=== PATIENT | female | born 1965 | race Caucasian/White ===

== ENCOUNTER → 2021-04-01 07:04 | Outpatient (CLI) | payer BC, SELFPAY ==
[2021-04-01 14:03] LABS: Influenza A QL RT-PCR Negative (Negative); Influenza B QL RT-PCR Negative (Negative); SARS-CoV-2 RNA PCR Negative
== END ==
PROVIDERS: PCP Family Medicine; Visit Provider Physician Assistant
DX: R50.9 Fever, unspecified (principal); Z20.822 Contact with and (suspected) exposure to COVID-19
CPT/HCPCS: 87502; C9803; U0003; U0005

== ENCOUNTER 2021-07-14 01:05 | Day surgery (SDC) | payer BC, SELFPAY ==
[2021-07-01 13:17] VITALS: BMI 24.9
[2021-07-14 06:17] VITALS: BP 114/73; PULSE 90; RESP 18; TEMP 36.3; O2SAT 100; BMI 24.6
[2021-07-14] MEDS: LACTATED RINGERS 1,000 ML 150 ML IV CONT (06:41)
--- NOTE | 2021-07-14 07:23 | PM.HPGS ---
History of Present Illness History of Present Illness Consent: Risks, benefits, and alternatives have been discussed and questions answered. Patient agrees to proceed with procedure. Chief complaint: neoplasm screening Narrative: Mei Allen is a 56 year old female here for first screening colonoscopy Review of Systems Constitutional: Constitutional: Denies headache(s) and Denies weakness Eyes: Eyes: Denies blurry vision ENT: Reports Normal hearing present, Denies headache(s) and Denies neck pain Cardiovascular: Cardiovascular: Denies chest pain and Denies dyspnea Respiratory: Respiratory: Denies dyspnea Gastrointestinal: Gastrointestinal: Reports no additional gastrointestinal complaints Genitourinary: Genitourinary: Denies dysuria Musculoskeletal: Musculoskeletal: Denies neck pain Integumentary/Breasts: Skin/Breast: Denies dry skin Neurologic: Reports Normal hearing present, Denies headache(s) and Denies weakness Psychiatric: Psychiatric: Denies anxiety Endocrine: Endocrine: Denies change in body appearance Hematologic/Lymphatic: Hematologic/Lymphatic: Denies easy bleeding Allergic/Immunologic: Allergic/Immunologic: Denies urticaria PMFSH Past Medical History Medical History (Updated 05/17/21 @ 13:55 by Cathleen English MD) Burning tongue syndrome Chronic neck pain Factor V Leiden Thyroid nodule Surgical History Surgical History H/O wisdom tooth extraction Family History Family History Grandparent Family history of malignant neoplasm of breast Mother Afib Osteoarthritis DVT (deep venous thrombosis) Sibling Melanoma Father Dementia Black lung disease Osteoarthritis Heart disease CAD (coronary artery disease) Social History Social History Smoking status: Former smoker Tobacco type: cigarettes Second hand tobacco smoke exposure: No Smoking end date: 03/20/90 Alcohol intake: current Drinks per week: 6 Substance use: never Substance use type: does not use Living arrangements: with family Gender identity (if verbalized by the patient): Female Sexual Orientation (if Verbalized by the Patient): Straight or Heterosexual Spiritual care concerns: No Agree to blood products: Yes Meds Home Medications and Allergies Home Medications Medication Instructions Recorded Confirmed Type calcium carbonate 600 mg-vitamin 1 cap PO DAILY 04/08/21 07/14/21 History D3 12.5 mcg (500 unit) capsule abaloparatide 80 mcg SUBCUT DAILY 05/12/21 07/14/21 History alendronate 70 mg PO WEEKLY 07/01/21 07/14/21 History cholecalciferol (vitamin D3) 50 mcg PO DAILY 07/01/21 07/14/21 History [Vitamin D3] triamcinolone acetonide 1 applic TOPICAL DAILY 07/01/21 07/14/21 History Allergies Allergy/AdvReac Type Severity Reaction Status Date / Time No Known Allergies Allergy Verified 07/14/21 06:24 Vital Signs Vital Signs - 24 hr 07/14/21 06:17 Temperature 97.4 F L Pulse Rate 90 Respiratory Rate 18 Blood Pressure 114/73 Pulse Oximetry 100 Exam Const: General: comfortable and no acute distress HENMT: General nose exam: Normal nares present Eyes: General: appearance normal, both eyes and all related structures Neck: Neck: no JVD Resp: Auscultation: clear to auscultation bilaterally Cardio: Rate: regular rate Rhythm: regular rhythm GI: Inspection: non-distended GI Palp: Yes Soft to palpation Skin: General skin exam: normal color Neuro: General: gait normal Speech: normal speech Extrem: General: normal to inspection Psych: Mental Status: mental status grossly normal Assessment and Plan Assessment and plan (1) Colon cancer screening: Code(s): Z12.11 - Encounter for screening for malignant neoplasm of colon Status: Acute Assessment and Plan: co
--- NOTE | 2021-07-14 07:24 | P.PNAN_ITS ---
Anes - Initial Pre Proc Eval Procedure: Operation Date: 07/14/21 07:30 Proposed Procedures p Screening Colonoscopy - Erasmo Arrington MD Date/Time: 07/14/21 07:24 Surgeon: Erasmo Arrington MD Pre Op Diagnosis: neoplasm screening Patient Data Age: 56 Gender: F Height: 1.68 m Weight: 69.3 kg Last Vital Signs Temp 97.4 F L 07/14/21 06:17 Pulse 90 07/14/21 06:17 Resp 18 07/14/21 06:17 BP 114/73 07/14/21 06:17 Pulse Ox 100 07/14/21 06:17 Allergies Allergy/AdvReac Type Severity Reaction Status Date / Time No Known Allergies Allergy Verified 07/14/21 06:24 Home Medications Medication Instructions Recorded Confirmed Type calcium carbonate 600 mg-vitamin 1 cap PO DAILY 04/08/21 07/14/21 History D3 12.5 mcg (500 unit) capsule abaloparatide 80 mcg SUBCUT DAILY 05/12/21 07/14/21 History alendronate 70 mg PO WEEKLY 07/01/21 07/14/21 History cholecalciferol (vitamin D3) 50 mcg PO DAILY 07/01/21 07/14/21 History [Vitamin D3] triamcinolone acetonide 1 applic TOPICAL DAILY 07/01/21 07/14/21 History Patient hx anesthesia problems: none Family hx anesthesia problems: none Results Review: All pre-operative results and documents have been reviewed as part of the pre-operative evaluation. [facility] Past Medical History Medical History (Updated 05/17/21 @ 13:55 by Cathleen English MD) Burning tongue syndrome Chronic neck pain Factor V Leiden Thyroid nodule Surgical History Surgical History H/O wisdom tooth extraction Family History Family History Grandparent Family history of malignant neoplasm of breast Mother Afib Osteoarthritis DVT (deep venous thrombosis) Sibling Melanoma Father Dementia Black lung disease Osteoarthritis Heart disease CAD (coronary artery disease) Social History Social History Smoking status: Former smoker Tobacco type: cigarettes Second hand tobacco smoke exposure: No Smoking end date: 03/20/90 Alcohol intake: current Drinks per week: 6 Substance use: never Substance use type: does not use Living arrangements: with family Gender identity (if verbalized by the patient): Female Sexual Orientation (if Verbalized by the Patient): Straight or Heterosexual Spiritual care concerns: No Agree to blood products: Yes Anes - Eval Final PreProcedure Day of Procedure 07/14/21 07:24 Patient weight: normal Heart: regular rate and rhythm Lungs: clear to auscultation Airway: Mallampati scale class II Neurological: alert and oriented Last oral intake: >/= 8 hours ASA classification: II Emergent: no Anesthetic plan: proceed Anesthesia type and monitoring: general GIVS and standard monitoring Results Review: All pre-operative results and documents have been reviewed as part of the pre-operative evaluation. Informed Consent: The patient's anesthetic plan and its attendant risks and benefits were discussed with the patient/family/POA. Questions were solicited and answers provided to the satisfaction of the patient/family/POA.
[2021-07-14 07:51] VITALS: BP 89/52; PULSE 70; RESP 14; O2SAT 99
[2021-07-14 08:01] VITALS: BP 100/47; PULSE 69; RESP 21; O2SAT 100
[2021-07-14 08:11] VITALS: BP 100/58; PULSE 57; RESP 14; O2SAT 100
== END 2021-07-14 08:21 | disposition home or self-care (01) ==
PROVIDERS: PCP Family Medicine; Visit Provider Internal Medicine Gastroenterology
PROC: 0DJD8ZZ Inspection of Lower Intestinal Tract, Via Natural or Artificial Opening Endoscopic (ICD-10-PCS; CPT 45378; principal; 2021-07-14 07:30)
DX: Z12.11 Encounter for screening for malignant neoplasm of colon (principal); K57.30 Diverticulosis of large intestine without perforation or abscess without bleeding; K64.8 Other hemorrhoids; K62.89 Other specified diseases of anus and rectum; D68.51 Activated protein C resistance; Z87.891 Personal history of nicotine dependence
CPT/HCPCS: 45378; J2704; J7120

== ENCOUNTER → 2022-03-17 11:11 | Outpatient (CLI) | payer BC, SELFPAY ==
--- NOTE | ~2022-03-17 | XR_ITS ---
Clinical Indication: Cough PA and lateral views of the chest: Comparison: 08/03/2016 Findings: The lungs are clear, aside from mild biapical scarring. Cardiomediastinal silhouette is wi thin normal limits. Bones and soft tissues are unremarkable. Impression: Mild biapical scarring, otherwise clear lungs. Reviewed, dictated and finalized at location . [employer] Impression: Mild biapical scarring, otherwise clear lungs.
== END ==
PROVIDERS: PCP Family Medicine; Visit Provider Physician Assistant Medical
DX: R05.3 Chronic cough (principal)
CPT/HCPCS: 71046

== ENCOUNTER 2023-09-18 10:27 | Emergency (ER) | payer BC, SELFPAY ==
--- NOTE | ~2023-09-18 | XR_ITS ---
EXAMINATION: XR wrist RT 2V, XR wrist LT 2V DATE: 09/18/2023 10:47 INDICATION: Radial sided right wrist pain post fall onto outstretched hand TECHNIQUE: 1. Posteroanterior and lateral views of the right wrist were obtained. 2. Posteroanterior and lateral views of the left wrist were obtained. COMPARISON: none FINDINGS: Normal alignment at both wrists. No fractures. Relatively symmetric tiny round calcific densities xander r the tips of the bilateral small ulnar styloid processes which could represent loose bodies or heter otopic ossicles related to chronic trauma. Mild cystic change at the tip of the left ulnar styloid pr ocess. Joint spaces are relatively preserved at the bilateral wrists and visualized portions of the h ands. Mild soft tissue swelling dorsal to the right carpus. IMPRESSION: 1. No acute osseous abnormality at either the left or right wrist. Reviewed, dictated and finalized at location B. IMPRESSION: 1. No acute osseous abnormality at either the left or right wrist.
--- NOTE | ~2023-09-18 | XR_ITS ---
EXAMINATION: XR cervical spine 4-5V DATE: 09/18/2023 12:35 INDICATION: Posterior neck pain. Fall. TECHNIQUE: 6 views of cervical spine including flexion and extension views were obtained. COMPARISON: Cervical spine radiographs 06/11/2018 FINDINGS: There is 12 degrees levoscoliosis of cervicothoracic spine. Vertebral body heights are norm al. There is mildly decreased disc height at C3-C4 and C4-C5 and severely decreased disc height at C5 -C6. Lower cervical spine is hypomobile with flexion and extension. There is multilevel [id number] ate facet joint osteoarthritis. There is mild central canal stenosis at C3-C4, C4-C5, C5-C6, and C6-C 7. No prevertebral soft tissue swelling. IMPRESSION: 1. Severe cervical spondylosis. 2. Cervicothoracic levoscoliosis. Reviewed, dictated and finalized at location A.
[2023-09-18 10:28] VITALS: BP 123/75; PULSE 71; RESP 14; TEMP 36.4; O2SAT 98
--- NOTE | 2023-09-18 12:08 | ED.UPPEXIN ---
HPI - Extremity Injury (Upper) General Chief Complaint: Extremity Injury, Upper Stated Complaint: bilateral wrist pain Time Seen by Provider: 09/18/23 11:28 Source: patient Mode of arrival: ambulatory Limitations: no limitations History of Present Illness HPI narrative: Patient is a 58-year-old female who presents the ED with report of bilateral wrist pain. Patient reports she tripped and fell on Monday night and fell backwards. She landed with both wrists outstretched. She has had pain in bilateral wrists since then, worse throughout right wrist. She has developed some bruising throughout the right wrist. She also reports neck pain from the fall. She did not hit her head. Denied LOC. Denied prodromal symptoms prior to the fall. Denies numbness. She has not taken anything for pain. Related Data Home Medications Medication Instructions Recorded Confirmed calcium carbonate 600 mg-vitamin 1 cap PO DAILY 04/08/21 09/01/23 D3 12.5 mcg (500 unit) capsule (Calcium 600 with Vitamin D3) cholecalciferol (vitamin D3) 50 50 mcg PO DAILY 07/01/21 09/01/23 mcg (2,000 unit) tablet (Vitamin D3) triamcinolone acetonide 0.025 % 1 applic topical DAILY 07/01/21 09/01/23 topical cream Allergies Allergy/AdvReac Type Severity Reaction Status Date / Time No Known Allergies Allergy Verified 09/18/23 11:05 Review of Systems Review of Systems: CONSTITUTIONAL: Denies fever, chills, or sweats. MUSCULOSKELETAL: See HPI. NEUROLOGIC: Denies headache, dizziness, numbness, or weakness. All systems reviewed & are unremarkable except as noted in HPI and below PMFSH Past Medical History Medical History Burning tongue syndrome Chronic neck pain Factor V Leiden Thyroid nodule Surgical History Surgical History H/O wisdom tooth extraction Family History Family History Grandparent Family history of malignant neoplasm of breast Mother Afib Osteoarthritis DVT (deep venous thrombosis) Sibling Melanoma Father Dementia Black lung disease Osteoarthritis Heart disease CAD (coronary artery disease) Social History Social History Smoking status: Former smoker Tobacco type: cigarettes Second hand tobacco smoke exposure: No Smoking end date: 03/20/90 Alcohol intake: current Drinks per week: 6 Substance use: never Substance use type: does not use Living arrangements: with family Occupation/Education: occupation Gender identity (if verbalized by the patient): Female Sexual Orientation (if Verbalized by the Patient): Straight or Heterosexual Spiritual care concerns: No Agree to blood products: Yes Exam Narrative: GENERAL: Well appearing, well-nourished, non-toxic, in no acute distress. HEAD: Normocephalic, atraumatic. RESPIRATORY: Airway patent, respirations nonlabored. CARDIOVASCULAR: Regular rate and rhythm without murmurs, rubs, or gallops. Radial pulses intact bilaterally. MUSCULOSKELETAL: Moves all extremities. No gross deformities. Mild limited ROM of right wrist flexion/ extension due to pain. Bruising noted to volar and lateral right wrist. Tenderness to palpation throughout R distal radius/ ulna. Sensation is intact. Capillary refill intact. No significant tenderness throughout the left distal wrist. Cervical spine with bilateral paraspinal tenderness. No significant midline cervical spinal tenderness. SKIN: Warm, dry, normal color. NEURO: A&O X3. Speech clear. Cranial nerves II-XII grossly intact. Steady gait. No ataxic movements. PSYCHIATRIC: Appropriate mood and affect. Normal interaction. Course Vital Signs Vital signs: Vital Signs Temperature 97.6 F 09/18/23 10:28 Pulse Rate 71 09/18/23 10:28
== END 2023-09-18 13:12 | disposition home or self-care (01) ==
PROVIDERS: Emergency Provider Physician Assistant; PCP Family Medicine
DX: S66.911A Strain of unspecified muscle, fascia and tendon at wrist and hand level, right hand, initial encounter (principal); S16.1XXA Strain of muscle, fascia and tendon at neck level, initial encounter; D68.51 Activated protein C resistance; Z87.891 Personal history of nicotine dependence; M47.812 Spondylosis without myelopathy or radiculopathy, cervical region; Z79.83 Long term (current) use of bisphosphonates; Z79.899 Other long term (current) drug therapy; W01.0XXA Fall on same level from slipping, tripping and stumbling without subsequent striking against object, initial encounter
CPT/HCPCS: 72050; 73100; 99284

== ENCOUNTER 2023-10-09 11:20 | Outpatient (CLI) | payer BC, SELFPAY ==
--- NOTE | ~2023-10-09 | XR_ITS ---
XR wrist RT w scaphoid Ordering provider: Lenka Jackson PA-C History: . fall 3 weeks ago still having pain . Comparison: September 18, 2023 FINDINGS: BONES: Fracture in the distal metaphysis of the right radius. JOINT SPACES: Normal. SOFT TISSUES: Normal. IMPRESSION: Undisplaced Fracture in the distal metaphysis of the right radius. Reviewed, dictated and finalized at location A.
== END 2023-10-09 11:21 ==
LOC: MICIMG 11:21
PROVIDERS: PCP Family Medicine; Visit Provider Student in an Organized Health Care Education/Training Program
DX: S52.591D Other fractures of lower end of right radius, subsequent encounter for closed fracture with routine healing (principal); X58.XXXD Exposure to other specified factors, subsequent encounter
CPT/HCPCS: 73110